=== PATIENT | female | born 1985 | race Asian ===

== ENCOUNTER 2016-06-13 12:17 | Inpatient (IN) | payer SELFPAY ==
[~2016-06-13] VITALS: Ht 160 cm; Wt 57.0 kg
[2016-06-13] MEDS ORDERED: LABETALOL 200 MG TAB PO SCH (12:54)
[2016-06-13] MEDS ORDERED: LACTATED RINGERS 1,000 ML IV SCH (13:10)
[2016-06-13] MEDS ORDERED: TERBUTALINE 1 MG/ML VIAL SUBQ SCH (13:10)
[2016-06-13] MEDS ORDERED: LABETALOL 200 MG TAB ONE (13:17)
[2016-06-13] MEDS ORDERED: BETAMETH ACET/BETAMETH NA PH 30 MG/5 ML VIAL IM ONE (13:17)
[2016-06-13] MEDS ORDERED: TERBUTALINE 1 MG/ML VIAL SUBQ ONE (13:17)
[2016-06-13] MEDS ORDERED: AMPICILLIN 2,000 MG VIAL ONE ×2 (13:19→19:10)
[2016-06-13] MEDS ORDERED: LORazepam 1 MG TAB PO PRN ×2 (13:45→14:40)
--- NOTE | 2016-06-13 14:10 | NUR ---
PATIENT HAS BEEN SCREENED AND CATEGORIZED LOW NUTRITION RISK. PATIENT WILL BE SEEN WITHIN 7 DAYS OF ADMISSION. 06/19/[address]
[2016-06-13 14:20] LABS: BASOPHILS # (AUTO) 0.1 K/uL (0.00-0.22); BASOPHILS % (AUTO) 1.4 % (0.0-2.0); EOSINOPHILS # (AUTO) 0.1 K/uL (0-0.4); EOSINOPHILS % (AUTO) 1.6 % (0.0-4.0); HEMATOCRIT 31.9 % (36-48); HEMOGLOBIN 9.9 g/dL (12.0-16.0); LYMPHOCYTES # (AUTO) 2.5 K/uL (2.5-16.5); LYMPHOCYTES % (AUTO) 39.5 % (20.5-51.1); MEAN CORPUSCULAR HEMOGLOBIN 25 pg (27-31); MEAN CORPUSCULAR HGB CONC 31 g/dL (33-37); MEAN CORPUSCULAR VOLUME 82 fL (80-94); MONOCYTES # (AUTO) 0.4 K/uL (0.8-1.0); MONOCYTES % (AUTO) 6.9 % (1.7-9.3); NEUTROPHILS # (AUTO) 3.3 K/uL (1.8-7.7); NEUTROPHILS % (AUTO) 50.6 % (42.2-75.2); PLATELET COUNT (AUTO) 121 K/uL (140-450); RED CELL DISTRIBUTION WIDTH 17.3 % (11.6-13.7); WHITE BLOOD COUNT (AUTO) 6.4 K/uL (4.8-10.8)
[2016-06-13 14:30] LABS: APPEARANCE,URINE CLEAR (CLEAR); BILIRUBIN,URINE NEGATIVE (NEGATIVE); BLOOD, URINE TRACE-I (NEGATIVE); COLOR,URINE YELLOW (YELLOW); LEUKOCYTE ESTERASE ,URINE NEGATIVE (NEGATIVE); NITRITE, URINE NEGATIVE (NEGATIVE); PROTEIN,URINE 2+ (NEGATIVE); UGLUCOSE NEGATIVE (NEGATIVE); UROBILINOGEN,URINE 0.2 EU/dL (0.2 - 1)
[2016-06-13 14:35] VITALS: BP 165/93
[2016-06-13 14:41] LABS: ALBUMIN 2.2 g/dL (3.4-5.0); ANION GAP 13.6 (8-16); CALCIUM 8.2 mg/dL (8.5-10.1); CARBON DIOXIDE 22.6 mmol/L (21-32); CREATININE 0.7 mg/dL (0.6-1.3); POTASSIUM 3.2 mmol/L (3.5-5.1); TOTAL BILIRUBIN 0.2 mg/dL (0.0-1.0); TOTAL PROTEIN, SERUM 5.8 g/dL (6.4-8.2)
[2016-06-13] MEDS ORDERED: MAG SULF 2000 MG/WATER PREMIX 50 ML IV ONE (14:50)
[2016-06-13 14:53] LABS: BACTERIA,URINE FEW /HPF (None Seen); RBC,URINE 0-5 (RARE) /HPF (0-5); SQUAMOUS EPITHELIAL CELL,UR RARE /LPF (0-3 (FEW)); WBC,URINE 0-5 (RARE) /HPF (0-5)
[2016-06-13 14:59] LABS: D-DIMER 1170 ng/ml (0-400)
[2016-06-13] MEDS ORDERED: MAG SULF 20 GM/H2O PREMIX DRIP 500 ML IV SCH (15:00)
[2016-06-13] MEDS ORDERED: POTASSIUM CHLORIDE 40 MEQ in NACL 0.45% 1,000 ML IV SCH (15:00)
[2016-06-13] MEDS ORDERED: POTASSIUM CHLORIDE 10 MEQ TABER PO SCH (15:05)
[2016-06-13 15:08] LABS: FIBRINOGEN 363 mg/dL (200-400)
[2016-06-13 15:23] LABS: PROTHROMBIN TIME 9.2 secs (10.8-13.4)
[2016-06-13] MEDS: MAG SULF 2000 MG/WATER PREMIX 100 ML IV SCH ×2 (15:23→15:41)
[2016-06-13] MEDS ORDERED: MAG SULF 20 GM/H2O PREMIX DRIP 500 ML IV ONE (16:05)
[2016-06-13] MEDS ORDERED: AMPICILLIN 2,000 MG in NACL 0.9% 100 ML IV SCH (18:00)
[2016-06-13] MEDS ORDERED: TERBUTALINE 2.5 MG TAB ONE (18:33)
[2016-06-13] MEDS ORDERED: LABETALOL 100 MG TAB PO SCH (21:00)
[2016-06-14] MEDS ORDERED: TERBUTALINE 2.5 MG TAB PO SCH
[2016-06-14] MEDS ORDERED: TERBUTALINE 2.5 MG TAB ONE ×3 (00:04→11:42)
[2016-06-14] MEDS ORDERED: AMPICILLIN 2,000 MG VIAL ONE ×3 (00:50→11:42)
[2016-06-14] MEDS ORDERED: BETAMETH ACET/BETAMETH NA PH 30 MG/5 ML VIAL IM ONE ×2 (01:17→01:18)
[2016-06-14] MEDS ORDERED: LABETALOL 100 MG TAB ONE (09:03)
[2016-06-14] MEDS ORDERED: BETAMETH ACET/BETAMETH NA PH 30 MG/5 ML VIAL IM SCH (14:00)
== END 2016-06-14 14:45 | disposition home or self-care (01) | DRG 781 ==
LOC: MLD 12:17 → OBSVTOIN 12:53
PROVIDERS: ADMIT Obstetrics & Gynecology; ATTEND Obstetrics & Gynecology
DX: O14.93 Unspecified pre-eclampsia, third trimester (principal); Z3A.35 35 weeks gestation of pregnancy
CPT/HCPCS: 36415; 80053; 81001; 83735; 85025; 85379; 85384; 85610; 85730; 86592; 86762; 87340; 87653-90; G0378; J0290; J0690; J0702; J3105; J3475; J7060; J7120

== ENCOUNTER 2016-07-05 05:55 | Inpatient (IN) | payer SELFPAY ==
[~2016-07-05] VITALS: Ht 152.4 cm; Wt 63.0 kg
[2016-07-05] MEDS ORDERED: OXYTOCIN 20 UNITS/LR PREMIX 1,000 ML IV SCH ×2 (06:30→06:45)
[2016-07-05] MEDS ORDERED: OXYTOCIN 10 UNITS/ML VIAL IM ONE ×2 (06:30→10:00)
[2016-07-05] MEDS ORDERED: LACTATED RINGERS 1,000 ML IV SCH ×2 (06:30→06:45)
[2016-07-05] MEDS ORDERED: NALBUPHINE 10 MG/ML AMP IVP PRN (06:45)
[2016-07-05] MEDS ORDERED: hydrALAZINE 20 MG/ML VIAL IM ONE (06:45)
[2016-07-05] MEDS ORDERED: PROMETHAZINE 25 MG/ML VIAL IVP PRN (06:45)
[2016-07-05] MEDS ORDERED: hydrALAZINE 20 MG/ML VIAL ONE (06:50)
[2016-07-05] MEDS ORDERED: PROMETHAZINE 25 MG/ML VIAL ONE ×2 (07:03→20:39)
[2016-07-05] MEDS ORDERED: NALBUPHINE HYDROCHLORIDE 10 MG/ML VIAL ONE ×2 (07:03→20:38)
[2016-07-05] MEDS ORDERED: NIFEdipine 10 MG CAPLF ONE (07:09)
[2016-07-05] MEDS ORDERED: ROPIVACAINE 0.2%/NS PREMIX 250 ML EPI ONE (07:19)
[2016-07-05] MEDS ORDERED: ROPIVACAINE 0.2%/NS PREMIX 250 ML EPI SCH (07:35)
[2016-07-05] MEDS ORDERED: MAG SULF 20 GM/H2O PREMIX DRIP 500 ML IV ONE ×3 (07:45→21:04)
[2016-07-05] MEDS ORDERED: MAG SULF 2000 MG/WATER PREMIX 50 ML IV SCH ×2 (08:05→09:48)
[2016-07-05] MEDS ORDERED: METHYLERGONOVINE 0.2 MG/ML AMP IM SCH (08:06)
--- NOTE | 2016-07-05 08:25 | NUR ---
PATIENT HAS BEEN SCREENED AND CATEGORIZED LOW NUTRITION RISK. PATIENT WILL BE SEEN WITHIN 7 DAYS OF ADMISSION. 07/11/[address]
[2016-07-05] MEDS ORDERED: NIFEdipine 10 MG CAPLF PO SCH (09:00)
[2016-07-05 11:27] VITALS: BP 99/60
[2016-07-05] MEDS ORDERED: TRANDATE200 M1 PO (11:31)
[2016-07-05] MEDS ORDERED: OXYTOCIN 10 UNITS/ML VIAL ONE (12:24)
[2016-07-05] MEDS ORDERED: OXYTOCIN 20 UNITS/LR PREMIX 1,000 ML IV ONE (12:24)
[2016-07-05] MEDS: LABETALOL 100 MG TAB PO SCH (21:03)
[2016-07-05] MEDS ORDERED: LABETALOL 100 MG TAB ONE (21:04)
[2016-07-05] MEDS ORDERED: MAG SULF 20 GM/H2O PREMIX DRIP 500 ML IV SCH (21:35)
[2016-07-06] MEDS ORDERED: WITCH HAZEL 40 PAD PACKAGE TP PRN (05:30)
[2016-07-06] MEDS ORDERED: TEMAZEPAM 15 MG CAP PO PRN (05:30)
[2016-07-06] MEDS ORDERED: oxyCODONE/APAP 5/325 MG 1 TAB TAB PO PRN ×2 (05:30)
[2016-07-06] MEDS ORDERED: HYDROcodone/APAP 5/325 MG 1 TAB TAB PO PRN (05:30)
[2016-07-06] MEDS ORDERED: BENZOCAINE/MENTHOL 20%-0.5% 60 GM CAN TP PRN (05:30)
[2016-07-06] MEDS: IBUPROFEN 800 MG TAB PO PRN ×3 (05:42→19:43)
[2016-07-06] MEDS ORDERED: IBUPROFEN 800 MG TAB ONE (05:42)
[2016-07-06] MEDS ORDERED: LABETALOL 100 MG TAB ONE (08:52)
[2016-07-06] MEDS ORDERED: DOCUSATE SOD/SENNA 50/8.6 MG 1 TAB PO SCH (21:00)
[2016-07-06] MEDS: LABETALOL 100 MG TAB PO SCH (21:08)
[2016-07-06] MEDS: HYDROcodone/APAP 5/325 MG 1 TAB TAB PO PRN (22:46)
[2016-07-07] MEDS: HYDROcodone/APAP 5/325 MG 1 TAB TAB PO PRN ×2 (05:50→10:51)
[2016-07-07] MEDS ORDERED: HYDROcodone/APAP 5/325 MG 1 TAB TAB ONE (05:52)
[2016-07-07] MEDS: LABETALOL 100 MG TAB PO SCH (08:53)
[2016-07-07] MEDS: IBUPROFEN 800 MG TAB PO PRN (16:56)
== END 2016-07-07 17:50 | disposition home or self-care (01) | DRG 775 ==
LOC: INTOOBSV 05:55 → MLD 05:55 → OBSVTOIN 06:15 → MFCC 07-06 09:37
PROVIDERS: ADMIT Obstetrics & Gynecology; ATTEND Obstetrics & Gynecology
PROC: 10D07Z6 Extraction of Products of Conception, Vacuum, Via Natural or Artificial Opening (ICD-10-PCS; principal; 2016-07-05)
PROC: 0W8NXZZ Division of Female Perineum, External Approach (ICD-10-PCS; 2016-07-05)
PROC: 3E0S3CZ (ICD-10-PCS; 2016-07-05)
PROC: 00HU33Z Insertion of Infusion Device into Spinal Canal, Percutaneous Approach (ICD-10-PCS; 2016-07-05)
DX: O11.4 Pre-existing hypertension with pre-eclampsia, complicating childbirth (principal); O99.12 Other diseases of the blood and blood-forming organs and certain disorders involving the immune mechanism complicating childbirth; O13.4 Gestational [pregnancy-induced] hypertension without significant proteinuria, complicating childbirth; D69.6 Thrombocytopenia, unspecified; Z3A.38 38 weeks gestation of pregnancy; Z37.0 Single live birth; Z28.21 Immunization not carried out because of patient refusal